=== PATIENT | female | born 1995 | race Caucasian/White ===

== ENCOUNTER 2016-04-11 16:54 | Emergency (ER) | payer SELFPAY ==
[~2016-04-11] VITALS: Ht 162.6 cm; Wt 113.4 kg
[2016-04-11 17:23] VITALS: BP 160/99
--- NOTE | 2016-04-11 23:46 | NUR ---
PATIENT LEFT WITHOUT BEING SEEN BY DR. MARTINEZ. NO FURTHER CARE PROVIDED FOR PATIENT.
== END 2016-04-11 23:46 | disposition left against medical advice (07) ==
LOC: MED 16:54
DX: H92.01 Otalgia, right ear (principal); Z53.21 Procedure and treatment not carried out due to patient leaving prior to being seen by health care provider

== ENCOUNTER 2019-08-31 01:30 | Emergency (ER) | payer OTHER ==
[~2019-08-31] VITALS: Ht 162.6 cm; Wt 113.4 kg
[2019-08-31 01:38] VITALS: BP 151/97
--- NOTE | 2019-08-31 01:42 | NUR ---
PT AMBULATED TO BED #11
[2019-08-31] MEDS ORDERED: LORazepam 0.5 MG TAB PO ONE (01:45)
--- NOTE | 2019-08-31 01:54 | NUR ---
pt coming in with c/o anxiety x 1 day. also having chest pressure/tightness to left upper chest x 1 day. denies sob, no cough. pt a/o x 4. respirations regular and unlabored. nka hx - anxiety
[2019-08-31 02:11] VITALS: BP 151/97
--- NOTE | 2019-08-31 02:12 | NUR ---
Patient discharged with v/s stable. Written and verbal after care instructions given and explained. Patient verbalized understanding. Ambulatory with steady gait. All questions addressed prior to discharge. Advised to follow up with PMD.
== END 2019-08-31 02:12 | disposition home or self-care (01) ==
LOC: MED 01:30
DX: F41.9 Anxiety disorder, unspecified (principal)
CPT/HCPCS: 93005; 99283